=== PATIENT | male | born 1970 | race Caucasian/White ===

== ENCOUNTER 2018-08-22 13:09 | Emergency (ER) | payer BC, SELFPAY ==
[2018-08-22 13:10] VITALS: BP 136/80; PULSE 89; RESP 22; TEMP 36.3; BMI 40.2
--- NOTE | 2018-08-22 13:20 | CT_ITS ---
STUDY: CT ABDOMEN AND PELVIS WITHOUT CONTRAST REASON FOR EXAM: Male, 48 years old. Left flank pain. RADIATION DOSAGE (If Supplied By Facility): CTDIvol = ( 14.80 ) mGy, DLP = ( 774.15 ) mGycm TECHNIQUE: Transaxial images were obtained from the dome of the diaphragm to the symphysis pubis without oral contrast, and without intravenous contrast. Sagittal and coronal images were reconstructed. Individualized dose optimization techniques were used for this CT. COMPARISON: None. FINDINGS: The visualized lung bases are unremarkable. The visualized portions of the heart are within normal limits. There is decreased attenuation of the liver consistent with steatosis. Normal gallbladder and extrahepatic biliary system. Normal spleen. Normal pancreas. Normal bilateral adrenal glands. There is a 3.4 mm calculus in the upper pole of the right kidney. There is also evidence of a 1.2 cm cyst in the posterior aspect of the upper pole of the right kidney. There is a 4.3 mm nonobstructive calculus in the upper pole calyx of the left kidney. There is also evidence of a 3 mm calculus in the distal portion of the left ureter just proximal to the ureterovesical junction. There is a small hiatal hernia. Normal small intestine. Normal colon. The appendix is visualized and appears normal. Normal abdominal aorta. Normal inferior vena cava. Normal retroperitoneum. Normal urinary bladder. Small benign-appearing lymph nodes in both groins. Normal abdominal wall. Normal osseous structures. CT/Abdomen/Pelvis without Cont IMPRESSION: 3 mm calculus in the distal portion of the left ureter just proximal to the ureterovesical junction. Small nonobstructive bilateral intrarenal calculi. Small cyst in the right kidney. Electronically Signed: Lázaro Smiley MD at 14:13 EST , Service support ,
[2018-08-22] MEDS: Ketorolac 30 MG/ML Syringe IV (13:28)
[2018-08-22] MEDS: 0.9% Normal Saline 1,000 ML 250 ML IV (13:28)
[2018-08-22] MEDS: morphine 8 MG/ML Syringe IV (13:28)
[2018-08-22] MEDS: Ondansetron 4 MG/2 ML Vial IV (13:28)
[2018-08-22 13:37] LABS: Absolute Lymphocyte Count 2.34 X10^3/ul (0.83-4.51); Absolute Neutrophil Count 4.9 X10^3/uL (2.0-7.7); Basophil# 0.08 X10^3/uL; Eosinophil# 0.27 X10^3/uL; Eosinophils% 3.2 % (0-5); Hematocrit 45.7 % (40-54); Hemoglobin 15.3 g/dl (13.0-16.5); Lymphocyte # 2.34 X10^3/ul (4.0); Lymphocyte % 27.9 % (19-41); Mean Corp Hgb Conc 33.5 g/gl (32-36); Mean Corpuscular Volume 86.6 fL (80-94); Mean Platelet Vol. 9.8 fl (6.2-12.0); Monocyte# 0.78 X10^3/uL; Monocyte% 9.3 % (0-10); Neutrophil % 58.5 % (47-70); Platelet Count 256 K/mm3 (150-450); RBC Distribution Width CV 13.7 % (11.6-14.6); RBC Distribution Width SD 43.1 fl (35.1-43.9); Red Blood Count 5.28 M/mm3 (4.6-6.2); White Blood Count 8.4 K/mm3 (4.4-11.0)
[2018-08-22 13:40] LABS: POSITIVE COUNT NO; POSITIVE DIFFERENTIAL NO; POSITIVE MORPHOLOGY NO
[2018-08-22 13:51] LABS: Anion Gap 7 (5-15); BUN 11 mg/dL (7-18); BUN/Creat Ratio 7.9 RATIO (10-20); Calcium,Total 8.6 mg/dL (8.5-10.1); Chloride 103 mmol/L (98-107); Creatinine, Serum 1.39 mg/dL (0.70-1.30); EST Glomerular Filtration Rate 58 mL/min (>60); Est Glom Filt Rate - Afr Amer 70 mL/min (>60); Estimated Creatinine Clearance 61.42 ml/min; Glucose 118 mg/dL (74-106); Potassium 3.2 mmol/L (3.5-5.1); Sodium Level 135 mmol/L (136-145)
--- NOTE | 2018-08-22 14:04 | ED.VISSUMM ---
- ER Visit Summary Date of Service: 08/22/18 Chief Complaint: Left flank pain History of Present Illness: The patient is a 48 M presents to the emergency department left-sided flank pain. The patient was in his normal state of health. He states come from work, and had sudden onset, stabbing pain in his left flank that radiated into his left pelvis. He was nauseated without vomiting. He states his never had pain like this before. He denies any fevers or chills. He denies any history of prior kidney stone. She is otherwise healthy. He is on no daily medications. Physical Examination: Vital signs reviewed General: Well-nourished, well-developed Head: Normocephalic, atraumatic Eyes: Pupils equal and reactive, extraocular muscles intact Neck, supple, no lymphadenopathy Heart: Regular rate and rhythm Respiratory: No distress, clear bilaterally Abdomen: Soft, nontender, nondistended, no peritoneal signs Back: Nontender Extremities: Nontender, no edema, no cords Skin: Normal color no rash Neuro: Alert and oriented, no focal or lateralizing deficits Test Results: [] Emergency Department Course and Treatment: Clinically, the patient's symptoms do seem consistent with kidney stone. He denies any prior history of this. IV was established. He was given Toradol and morphine. He did have improvement of his pain but then it returned. He underwent CT of the abdomen pelvis. This does show a 3 mm distal stone near the UVJ. Patient's pain is returned. He was ordered more analgesics, but within moments, his pain had totally resolved. Patient does not want to stay to get a urine. He denies any fevers. I do feel at this time that he is safe for discharge as he has pain control. He will be given outpatient neurology follow-up. Treatment Plan: [] Disposition: Discharge Impression: 1. 3 mm kidney stone This note was generated with [employer] dictation software. It may contain incorrect words, spelling, and punctuation that were not noted in review of the chart prior to signing ED Disposition - Plan for ED Patient: Instructions: ED Stone Renal W Colic Prescriptions: Hydrocodone Bitart/Apap 5-325 [[place] 5MG-325MG] 1 tab PO Q4H PRN PRN 2 Days #10 tab PRN Reason: Pain Ondansetron [Zofran Odt] 4 mg PO Q8H PRN PRN #10 tab PRN Reason: Nausea Tamsulosin HCl [Flomax] 0.4 mg PO DAILY #7 cap Referrals: Juan Michaels MD [STAFF PHYSICIAN] -
[2018-08-22 15:24] VITALS: BP 138/67; PULSE 81; RESP 15; O2SAT 98
== END 2018-08-22 15:26 | disposition home or self-care (01) ==
LOC: ED 13:45
PROVIDERS: Emergency Provider Emergency Medicine
DX: N20.0 Calculus of kidney (principal)
CPT/HCPCS: 74176; 80048; 85025; 96361; 96374; 96375; 99283; J7030; A4216; J2405

== ENCOUNTER → 2018-08-26 11:00 | Outpatient (CLI) | payer BC, SELFPAY ==
[2018-08-22 13:10] VITALS: BMI 40.2
[2018-09-01 20:07] LABS: Ca Oxalate, Dihydrate 15 % (.); Ca Oxalate, Monohydrate 80 % (.)
== END ==
PROVIDERS: Visit Provider Nurse Practitioner Adult Health
DX: N20.0 Calculus of kidney (principal)
CPT/HCPCS: 82360

== ENCOUNTER → 2018-08-27 08:13 | Outpatient (CLI) | payer BC, SELFPAY ==
[2018-08-22 13:10] VITALS: BMI 40.2
== END ==
PROVIDERS: Referring Provider Nurse Practitioner Adult Health; Visit Provider Nurse Practitioner Adult Health
DX: N20.0 Calculus of kidney (principal)

== ENCOUNTER 2020-09-08 02:25 | Emergency (ER) | payer OTHER, SELFPAY ==
[2020-09-08 02:26] VITALS: BP 136/75; PULSE 85; RESP 18; TEMP 36.2; O2SAT 96; BMI 41.0
--- NOTE | 2020-09-08 02:29 | CT_ITS ---
STUDY: CT ABDOMEN AND PELVIS WITHOUT CONTRAST REASON FOR EXAM: Male, 50 years old. Kidney Stone RADIATION DOSAGE (If Supplied By Facility): CTDIvol = ( 23.10 ) mGy, DLP = ( 1315.80 ) mGycm TECHNIQUE: Transaxial images were obtained from the dome of the diaphragm to the symphysis pubis without oral contrast, and without intravenous contrast. Sagittal and coronal images were reconstructed. Individualized dose optimization techniques were used for this CT. COMPARISON: 08/22/2018. FINDINGS: The visualized lung bases are unremarkable. The visualized portions of the heart are within normal limits. There is decreased attenuation of the liver consistent with steatosis. The gallbladder is contracted. Normal spleen. Normal pancreas. Normal bilateral adrenal glands. 1.3 mm stone within the upper pole of the right kidney. There is mild right hydronephrosis with minimal hydroureter due to a proximal ureteral stone measuring 4 mm and seen approximately 5.5 cm below the UP junction. Otherwise normal right kidney. 2 mm stone in the upper pole of the left kidney. Remainder of the left kidney are unremarkable. Normal visualized stomach. Normal small intestine. Normal colon. The appendix is visualized and appears normal. Normal abdominal aorta. Normal inferior vena cava. Normal retroperitoneum. Normal urinary bladder. Normal size of prostate gland. Normal abdominal wall. There are mild degenerative changes of the visualized lumbar spine. CT/Abdomen/Pelvis without Cont IMPRESSION: Mild right hydronephrosis due to a proximal right ureteral stone measuring 4 mm as described above. Bilateral intrarenal stones as described. No acute appendicitis or bowel obstruction. Electronically Signed: Marilu Estrella MD at 3:06 EST , Service support ,
--- NOTE | 2020-09-08 02:30 | ED.DCSUM_ITS ---
- ER Visit Summary Date of Service: 09/08/20 Chief Complaint: Right flank/abdominal pain History of Present Illness: The patient is a 50 M who is right flank pain. Started an hour ago. It woke him up from sleep. He states he felt very hot so he opened up a window. He denies any hematuria. He does have a history of kidney stones. His last one was about a year ago. He has not had any fevers recently. He denies any nausea or vomiting. He denies any other health issues. Physical Examination: Vital signs reviewed. HEENT exam unremarkable. Heart is regular rate and rhythm without murmurs. Lungs are clear to auscultation. Abdomen is soft tenderness in the right lower quadrant. There is no guarding or rebound tenderness. Extremities reveal no edema. Skin exam normal. Neurologic exam normal. Test Results: Laboratory studies show a potassium of 2.8, glucose 142. Creatinine is 1.41 which is baseline. Urinalysis shows blood but only trace leukocytes. CAT scan reveals a 4 mm proximal ureteral stone with mild hydronephrosis. Emergency Department Course and Treatment: Patient was given normal saline, Zofran and Toradol. He continued to have pain to his given morphine. When I reevaluated him he was improved but was still having pressure. At this time the patient like to be discharged home. I will give him Flomax and dose of Dilaudid before discharge. I will send him home with Percocet for pain control. He will follow-up with urology. Treatment Plan: [] Disposition: Discharge Impression: Ureterolithiasis, renal colic This note was generated with [employer] dictation software. It may contain incorrect words, spelling, and punctuation that were not noted in review of the chart prior to signing ED Disposition - Plan for ED Patient: Disposition: Home or Assisted Living Instructions: ED Kidney Stone w/ Colic Prescriptions: Tamsulosin HCl [Flomax] 0.4 mg PO DAILY #7 cap Transmission Status: Pending to [id number] [place] Oxycodone HCl/Acetaminophen [Percocet 5/325] 1 tablet PO Q6H PRN PRN 3 Days #10 tablet PRN Reason: Pain Transmission Status: Sent to [address] [place] Referrals: Care Physician,No Primary [NON-STAFF] - Juan Michaels MD [STAFF PHYSICIAN] -
[2020-09-08] MEDS: Ketorolac 15 MG/ML Vial IV (02:36)
[2020-09-08] MEDS: Ondansetron 4 MG/2 ML Vial IV (02:36)
[2020-09-08 02:39] LABS: Absolute Lymphocyte Count 3.59 X10^3/uL (0.83-4.51); Absolute Neutrophil Count 3.8 X10^3/uL (2.0-7.7); Basophil# 0.09 X10^3/uL; Eosinophil# 0.36 X10^3/uL; Hemoglobin 15.9 g/dL (13.0-16.5); Lymphocyte # 3.59 X10^3/ul (4.0); Lymphocyte % 40.1 % (19-41); Mean Corp Hgb Conc 33.8 g/dL (32-36); Mean Corpuscular Hgb 29.2 pg (27.0-32.0); Mean Corpuscular Volume 86.2 fL (80-94); Mean Platelet Vol. 9.6 fl (6.2-12.0); Monocyte# 1.08 X10^3/uL; Monocyte% 12.1 % (0-10); NRBC Flagged by Analyzer 0 % (0-5); Neutrophil # 3.82 X10^3/uL (2.7-7.7); Neutrophil % 42.6 % (47-70); Platelet Count 261 K/mm3 (150-450); RBC Distribution Width CV 12.9 % (11.6-14.6); RBC Distribution Width SD 40.1 fl (35.1-43.9); Red Blood Count 5.45 M/mm3 (4.6-6.2)
[2020-09-08 02:50] LABS: BUN 15 mg/dL (7-18); Creatinine, Serum 1.41 mg/dL (0.70-1.30); Estimated Creatinine Clearance 61.31 ml/min; Glucose 142 mg/dL (74-106)
[2020-09-08 02:51] LABS: Anion Gap 7 (5-15); BUN/Creat Ratio 10.6 RATIO (10-20); Calcium,Total 8.8 mg/dL (8.5-10.1); Chloride 104 mmol/L (98-107); EST Glomerular Filtration Rate 57 mL/min (>60); Est Glom Filt Rate - Afr Amer 69 mL/min (>60); Potassium 2.8 mmol/L (3.5-5.1); Sodium Level 140 mmol/L (136-145)
[2020-09-08] MEDS: 0.9% Normal Saline 1,000 ML 250 ML IV (02:59)
[2020-09-08] MEDS: morphine 8 MG/ML Syringe IV (03:37)
[2020-09-08 05:19] LABS: Color, Urine Yellow (Yellow); Glucose, Dipstick 50 mg/dl (Normal); Ketone-Dipstick 5 mg/dl (Negative); Leukocyte Esterase-Dipstick 25 /ul (Negative); Nitrite-Dipstick Negative (Negative); Occult Blood-Urine 250 /ul (Negative); Protein-Dipstick 100 mg/dl (Negative); Specific Gravity, Urine 1.025 (1.002-1.030); Squamous Epithelial Cells - UA 0 SEEN /hpf (0-5); Urine Bilirubin Dipstick Negative (Negative); Urine Clarity Clear (Clear); Urine Urobilinogen 1 mg/dl (Normal)
[2020-09-08 05:28] LABS: Red Blood Cells-Urine > 100 SEEN /hpf (0-5); White Blood Cells 0-5 SEEN /hpf (0-5)
[2020-09-08 05:30] LABS: Amorphous Sediment 1+; Bacteria 1+ /hpf (None Seen); Mucous, Urine 2+ /hpf (<or=2+)
[2020-09-08 05:31] LABS: Fine Granular Cast- Urine 0-5 SEEN /lpf (0-5); Hyaline Cast 0-5 SEEN /lpf (0-5); Transitional Epithelial - Ur 0-5 SEEN /hpf (0-5)
[2020-09-08] MEDS: HYDROmorphone 0.5 MG/0.5 ML SYRINGE IV (05:44)
[2020-09-08] MEDS: Tamsulosin HCl 0.4 MG Capsule PO (06:07)
[2020-09-08 06:11] VITALS: BP 138/80; PULSE 60; RESP 16; TEMP 36.6; O2SAT 98
== END 2020-09-08 06:13 | disposition home or self-care (01) ==
PROVIDERS: Emergency Provider Emergency Medicine; PCP Family Medicine
DX: N13.2 Hydronephrosis with renal and ureteral calculous obstruction (principal); Z87.442 Personal history of urinary calculi
CPT/HCPCS: 74176; 80048; 81001; 85025; 90471; 96361; 96374; 96375; 99285; J7030; A4216; J2405

== ENCOUNTER 2020-09-10 18:24 | Emergency (ER) | payer OTHER, SELFPAY ==
[2020-09-10 18:25] VITALS: BP 146/97; PULSE 86; RESP 25; TEMP 36.4; O2SAT 95; BMI 39.5
--- NOTE | 2020-09-10 18:35 | ED.VIS.GEN ---
History of Present Illness Chief Complaint: Flank Pain Informant: Patient Onset: Days Context: Gradual Onset Timing: Waxes and wanes Current Severity: Severe Maximum Severity: Severe Narrative: Patient returns with severe right flank pain. He was seen in the ER on the and diagnosed with a 4 mm proximal ureter stone. Patient was sent home with Percocet and Flomax. Patient states his last dose of medications was 2 hours ago. He is having severe pain and having difficulty finding a position of comfort. He is scheduled to see Dr. Michaels in the office on Saturday. - Past Medical History (1) Kidney stones Status: Chronic Past Medical History - Allergies and Home Meds Allergies/Adverse Reactions: Allergies No Known Allergies Allergy (Verified 09/10/20 18:27) Primary Care Physician: Agustin Woods MD [Primary Care Provider] - Prior records reviewed: Yes Smoking Status: Never smoker Review of Systems General: Denies: Chills, Fever Eyes: Denies: Visual changes - bilaterally ENT: Denies: Bilateral ear pain Cardiovascular: Denies: Chest pain Respiratory: Denies: Dyspnea, Cough Gastrointestinal: Reports: Abdominal pain, Nausea Musculoskeletal: Reports: Back pain - Right flank Skin: Denies: Rash Neurological: Denies: Headache Hematologic: Denies: Easy bruising, Easy bleeding Allergy: Denies: Uticaria Physical Exam Vital Signs/Narrative: Vital Signs Temp Pulse Resp BP Pulse Ox 09/10/20 18:25 97.6 F L 86 25 H 146/97 H 95 Inital Vital Signs reviewed: Yes General: Well nourished, Well developed, - - Rolling in the bed, difficulty finding position of comfort. Head: Normocephalic Neck: Supple Cardiovascular: Regular rate, Regular rhythm Respiratory: No distress, CTA bilaterally Abdomen: Soft, Nontender Back: CVA tenderness Extremities: Nontender Skin: Normal color Neurological: Alert, Oriented x3 Diagnostic/Tx/Re-eval Impressions KUB X-Ray 09/10/20 19:50 IMPRESSION: Normal abdomen x-ray. No intestinal obstruction. Electronically Signed: Nadya Fry MD at 20:53 EST Tel , Service support , 09/10/20 19:50 KUB [Abdomen Single View] [RAD] Stat Laboratory Results 09/10/20 09/10/20 09/10/20 18:30 18:30 19:15 WBC 8.9 RBC 5.60 Hgb 16.2 Hct 47.1 MCV 84.1 MCH 28.9 MCHC 34.4 RDW Std Deviation 38.5 RDW Coeff of [place] 12.8 Plt Count 260 MPV 10.0 Immature Gran % (Auto) 0.300 Neut % (Auto) 72.8 H Lymph % (Auto) 16.6 L [place] % (Auto) 7.9 Eos % (Auto) 1.7 Baso % (Auto) 0.7 Absolute Neuts (auto) 6.5 Absolute Lymphs (auto) 1.48 Nucleated RBC % 0 Sodium 136 Potassium 3.3 L Chloride 102 Carbon Dioxide 26.0 Anion Gap 8 BUN 13 Creatinine 1.54 H Estim Creat Clear Calc 56.14 Est GFR (MDRD) Af Amer 62 Est GFR (MDRD) Non-Af 51 L BUN/Creatinine Ratio 8.4 L Glucose 125 H Calcium 9.2 Urine Color Yellow Urine Clarity Sl. Cloudy Urine pH 5.0 Ur Specific [place] 1.025 Urine Protein 100 H Urine Glucose (UA) Normal Urine Ketones 15 H Urine Occult Blood 250 H Urine Nitrite Negative Urine Bilirubin Negative Urine Urobilinogen 1 H Ur Leukocyte Esterase 25 H Urine RBC 25-50 SEEN Urine WBC 0-5 SEEN Ur Squamous Epith Cells 0 SEEN Urine Bacteria 0 SEEN Urine Mucus 1+ - Medical Decision Making Patient was given Toradol, Zofran, 0.5 mg Dilaudid, and IV fluids. On repeat evaluation pain was significantly improved. Test results discussed with the patient. KUB was obtained. Per my interpretation nonspecific bowel gas pattern I cannot definitively see a kidney stone. Radiologist interpretation is also reviewed. At this time patient's pain is significantly improved. He wishes to go home with pain medication. He states he will has 1 Percocet left will be given a prescription. We will also write him 2 additional days of Toradol as he was not placed on an anti-inflammatory previously. He will follow-up with his urologist on Saturday as planned. ED Disposition - Plan for ED Patient: Disposition: Home or Assisted Living Diagnosis: Ureterolithiasis Instructions: ED Kidney Stone w/ Colic Prescriptions: Oxycodone HCl/Acetaminophen [Percocet 5/325] 1 tablet PO Q6H PRN PRN 3 Days #12 tablet PRN Reason: Pain Ketorolac [Toradol] 10 mg PO Q6H #6 tablet Additional Instructions: Follow-up with your urologist on Saturday as scheduled.
[2020-09-10] MEDS: HYDROmorphone 0.5 MG/0.5 ML SYRINGE IV (18:48)
[2020-09-10] MEDS: Ondansetron 4 MG/2 ML Vial IV (18:50)
[2020-09-10] MEDS: Ketorolac 30 MG/ML Syringe IV (18:50)
[2020-09-10 19:23] LABS: Bacteria 0 SEEN /hpf (None Seen); Squamous Epithelial Cells - UA 0 SEEN /hpf (0-5)
[2020-09-10 19:27] LABS: Color, Urine Yellow (Yellow); Glucose, Dipstick Normal (Normal); Ketone-Dipstick 15 mg/dl (Negative); Leukocyte Esterase-Dipstick 25 /ul (Negative); Nitrite-Dipstick Negative (Negative); Occult Blood-Urine 250 /ul (Negative); Protein-Dipstick 100 mg/dl (Negative); Specific Gravity, Urine 1.025 (1.002-1.030); Urine Bilirubin Dipstick Negative (Negative); Urine Clarity Sl. Cloudy (Clear); Urine Urobilinogen 1 mg/dl (Normal)
[2020-09-10 19:31] LABS: Absolute Lymphocyte Count 1.48 X10^3/uL (0.83-4.51); Absolute Neutrophil Count 6.5 X10^3/uL (2.0-7.7); Basophil# 0.06 X10^3/uL; Basophil% 0.7 % (0-1); Eosinophil# 0.15 X10^3/uL; Eosinophils% 1.7 % (0-5); Hematocrit 47.1 % (40-54); Hemoglobin 16.2 g/dL (13.0-16.5); Lymphocyte # 1.48 X10^3/ul (4.0); Lymphocyte % 16.6 % (19-41); Mean Corp Hgb Conc 34.4 g/dL (32-36); Mean Corpuscular Hgb 28.9 pg (27.0-32.0); Mean Corpuscular Volume 84.1 fL (80-94); Monocyte# 0.71 X10^3/uL; Monocyte% 7.9 % (0-10); NRBC Flagged by Analyzer 0 % (0-5); Neutrophil # 6.51 X10^3/uL (2.7-7.7); Neutrophil % 72.8 % (47-70); Platelet Count 260 K/mm3 (150-450); RBC Distribution Width CV 12.8 % (11.6-14.6); RBC Distribution Width SD 38.5 fl (35.1-43.9); White Blood Count 8.9 K/mm3 (4.4-11.0)
[2020-09-10 19:36] LABS: Anion Gap 8 (5-15); BUN 13 mg/dL (7-18); BUN/Creat Ratio 8.4 RATIO (10-20); Calcium,Total 9.2 mg/dL (8.5-10.1); Chloride 102 mmol/L (98-107); Creatinine, Serum 1.54 mg/dL (0.70-1.30); EST Glomerular Filtration Rate 51 mL/min (>60); Est Glom Filt Rate - Afr Amer 62 mL/min (>60); Estimated Creatinine Clearance 56.14 ml/min; Glucose 125 mg/dL (74-106); Potassium 3.3 mmol/L (3.5-5.1); Sodium Level 136 mmol/L (136-145)
[2020-09-10 19:44] LABS: Mucous, Urine 1+ /hpf (<or=2+)
[2020-09-10 19:46] LABS: Red Blood Cells-Urine 25-50 SEEN /hpf (0-5)
[2020-09-10 19:47] LABS: White Blood Cells 0-5 SEEN /hpf (0-5)
--- NOTE | 2020-09-10 19:50 | RAD_ITS ---
STUDY: X-RAY - ABDOMEN/PELVIS REASON FOR EXAM: Male, 50 years old. kidney stone TECHNIQUE: Multiple views of the abdomen COMPARISON: 08 September 2020 FINDINGS: There is no intestinal obstruction. There are no calcifications projecting over the abdomen. Recently CT diagnosed stones are too small to visualize with plain films. Osseous structures are intact. RAD/Abdomen Single View IMPRESSION: Normal abdomen x-ray. No intestinal obstruction. Electronically Signed: Nadya Fry MD at 20:53 EST Tel , Service support ,
[2020-09-10 21:20] VITALS: BP 121/78; PULSE 69; RESP 16; O2SAT 95
== END 2020-09-10 21:44 | disposition home or self-care (01) ==
PROVIDERS: Emergency Provider Emergency Medicine; PCP Family Medicine
DX: N20.1 Calculus of ureter (principal); Z87.442 Personal history of urinary calculi
CPT/HCPCS: 74018; 80048; 81001; 85025; 96374; 96375; 99283; A4216; J2405

== ENCOUNTER 2024-04-13 00:54 | Emergency (ER) | payer BC, SELFPAY ==
[2024-04-13 00:55] VITALS: BP 160/115; PULSE 96; RESP 18; TEMP 36.7; O2SAT 97; BMI 41.5
--- NOTE | 2024-04-13 01:12 | CT_ITS ---
EXAM: CT ABDOMEN AND PELVIS WITHOUT INTRAVENOUS CONTRAST CLINICAL INDICATION: Pain Pain TECHNIQUE: Helically acquired images were obtained of the abdomen and pelvis without intravenous contrast. This CT exam was performed using one or more of the following dose reduction techniques: automated exposure control, adjustment of the mA and/or kV according to patient size, and/or use of iterative reconstruction technique. RADIATION DOSE: CTDIvol = 21.92 mGy, DLP = 1193.75 mGy-cm COMPARISON: CT scan abdomen and pelvis 09/08/2020. FINDINGS: LOWER THORAX: There are coronary artery calcifications. Lung bases are clear. No cardiomegaly. No significant pericardial effusion. ABDOMEN: LIVER: There is decreased attenuation in the liver consistent with fatty infiltration. GALLBLADDER AND BILE DUCTS: Unremarkable. No calcified gallstones. No gallbladder distention or wall edema. No intra- or extrahepatic biliary ductal dilation. PANCREAS: Unremarkable. No focal cystic mass. SPLEEN: The spleen is mildly enlarged. ADRENALS: Unremarkable. No nodules. KIDNEYS AND URETERS: As seen on axial images 163-165, there is a 3.5 mm wide distal right ureteral IN the ureterovesical junction. There is mild hydronephrosis of the right kidney. There are 2 nonobstructive right renal calculi, the larger of which measures 3 mm. There is a 5 mm nonobstructive left renal calculus. There are simple appearing right renal cyst. No follow-up imaging is necessary for simple renal cysts or cysts that are too small to characterize. Normal renal size and position. STOMACH AND BOWEL: Unremarkable. No stomach or bowel distention. No focal inflammatory change. PELVIS: APPENDIX: No evidence of acute appendicitis. The appendix is seen on axial images 135-137. BLADDER: Unremarkable. REPRODUCTIVE: Unremarkable as visualized. No mass. ABDOMEN and PELVIS: INTRAPERITONEAL SPACE: Unremarkable. No ascites or other fluid collection. No free air. BONES/JOINTS: There are multilevel degenerative changes in the visualized spine. No suspicious lytic or blastic abnormality. SOFT TISSUES: Unremarkable. No discrete abdominal or pelvic wall hernia. VASCULATURE: No evidence for abdominal aortic aneurysm. LYMPH NODES: Unremarkable. No enlarged lymph nodes. CT/Abdomen/Pelvis without Cont IMPRESSION: 1. 3.5 mm wide distal right ureteral calculus with associated mild right hydronephrosis. 2. Small nonobstructive renal calculi bilaterally. 3. Mild splenomegaly. 4. Fatty infiltration of the liver. 5. Small coronary artery calcifications. Electronically Signed: Sancho Zimmerman MD at 2:50 EDT Reading Location ID and State: [facility] / [place] , Service support ,
--- NOTE | 2024-04-13 01:13 | EDS_ITS ---
HPI HPI - GI History of Present Illness Chief Complaint: Flank Pain Informant: patient and spouse/S.O. Abdominal Pain/Flank Pain Onset: Today and Hours Context: Sudden Onset Timing: Continuous Quality: Sharp and Stabbing Location: Right Flank Current Severity: Severe Maximum Severity: Severe Worsened by: Nothing Relieved by: Nothing Nausea/Vomiting/Emesis GI Symptom: Negative for Nausea or Vomiting Diarrhea/Melena/Hematochezia GI Symptom: Negative for Diarrhea, Melena or Hematochezia Associated Symptoms Associated Symptoms: Negative for Dysuria, Frequency, Hematuria or Urgency Narrative Narrative: 54-year-old male history of prior kidney stones. Said he was doing fine he felt fine earlier today. Around 11 PM he had sudden onset of right flank pain radiating to his right groin. Denies nausea or vomiting. No fever. No dysuria or hematuria. States this feels like his prior kidney stones. Prior similar symptoms: Yes Recent Illness/Hospitalization: No PFSH PFSH Medical History Kidney stones Home Medications ?Medication ?Instructions ?Recorded ?Last Taken ?Type oxycodone-acetaminophen 5 mg-325 1 tab PO Q4H 3 days #10 tabs 04/13/24 Unknown Rx mg tablet (Percocet) tamsulosin 0.4 mg capsule (Flomax) 0.4 mg PO DAILY 3 days #3 caps 04/13/24 Unknown Rx Allergy/AdvReac Type Severity Reaction Status Date / Time No Known Allergies Allergy Verified 04/13/24 00:57 Surgical History no surgical history Social History Smoking Status: Never smoker ROS ROS ED ROS Narrative Right flank pain. No recent illness. Constitutional Constitutional ED: Denies chills or fever(s) ENT ENT ED: Denies ear pain Cardiovascular Cardiovascular: Denies chest pain Respiratory/Chest Respiratory/Chest: Denies cough Gastrointestinal Gastrointestinal: Denies abdominal pain Genitourinary Genitourinary ED: Denies dysuria Musculoskeletal Musculoskeletal: Denies arthralgias Integumentary Denies abscess Neurologic Neurologic: Denies headache(s) Psychiatric Psychiatric: Denies anxiety Endocrine Endocrinology: Denies polydipsia Hematologic/Lymphatic Hematologic/Lymphatic: Denies easy bleeding Allergic/Immunologic Allergic/Immunologic ED: Denies mouth swelling, tongue swelling or urticaria EXAM Physical Exam Narrative Exam Narrative: Middle-age male vital signs stable blood pressure elevated 1 6115 I suspect secondary to pain. He is rolling on the bed in pain. at bedside. H EENT exam unremarkable. Lungs clear to auscultation bilateral. Heart regular rate and rhythm rate about 95 no murmur. Chest wall ribs nontender. Abdomen soft nontender. No reproducible abdominal pain. No right upper or right lower quadrant pain. No distention. Back nontender. He has right flank pain but there is no reproducible pain or signs of trauma. Moving all 4 extremities. Normal range of motion. Normal coordinator mining products strength. Normal dorsi plantarflexion. No edema. Neurologically he is awake and alert no focal motor deficits. Const Vital Signs: 04/13/24 00:55 Temperature 98.1 F Temperature Source Oral Pulse Rate 96 Respiratory Rate 18 Blood Pressure 160/115 H Blood Pressure Mean 130 Pulse Ox 97 Oxygen Delivery Method Room Air Positive well nourished and well developed; Negative for cachectic, contractures or unkempt General Appearance ED: well developed; Negative for unkempt, cachectic, contractures, NAD or pallor Nutritional Appearance: Negative for cachectic HEENT Reports moist mucous membranes normocephalic and atraumatic Eyes PERRL and EOMs intact bilaterally Neck no lymphadenopathy, supple and no JVD Resp normal respiratory effort and clear to auscultation bilaterally Cardio regular rate, regular rhythm, S1 normal heart sound, S2 normal heart sound and no murmurs GI non-tender, non-distended and no masses Palpation: soft; Negative for tender, guarding, hernia, mass, pulsatile mass or rebound tenderness present Back/Spine no CVA tenderness Back/Spine Narrative: Planing of right flank pain. Not reproducible. Extremity full ROM General Extremety ED: Negative for edema or tenderness General Extremity: Negative for edema Neuro CN's II-XII intact bilaterally and moves all extremities Sensorium / Orientation: alert, oriented to person, oriented to place and oriented to time Motor Exam: strength 5/5 throughout Psych mental status grossly normal and thought process normal Appearance: Negative for unkempt Attitude: No agitated Mood & Affect: Negative for depressed, anxious or tearful Skin no wounds General Skin Exam: Negative for jaundice or pallor Lesions: no lesions Rashes: no rashes MDM MDM MDM Narrative Medical decision making narrative: 54-year-old male with sudden onset of right flank pain with a history of kidney stones. I suspect this is a kidney stone. CAT scan labs. Treated with IV morphine, Zofran to prevent nausea and Toradol. Repeat exam at 1:42 AM. Patient's pain is much improved after the morphine and Toradol. He is being taken to CAT scan at this time. Repeat exam at 2:53 AM patient doing well. Clinically looks good. So he does not need any more for pain. We discussed his test results with his CAT scan with 3.5 mm UVJ stone. He will follow-up as needed. Percocet for pain. Flomax. History & Record Review Discussion w/independent historian: Patient and Family Additional record(s) reviewed:: Prior inpatient record, Prior outpatient record, Prior ED visit and Prior labs Lab Data Attestation: I reviewed the patient's lab results. Lab results narrative: CBC shows white count of 7. H&H 15 and 46. Platelets 258. BMP shows potassium 3.4. Gap of 8. BUN and creatinine of 14 and 1.67. Glucose 195. Urinalysis shows 250 occult blood. No nitrates. No white cells nor bacteria. CT flank study shows a right 3.5 mm UVJ stone with mild right hydro and hydroureter. Labs: Laboratory Results - last 24 hr 04/13/24 04/13/24 01:06 02:06 WBC 7.7 RBC 5.58 Hgb 15.7 Hct 46.9 MCV 84.1 MCH 28.1 MCHC 33.5 RDW Std Deviation 40.3 RDW Coeff of [place] 13.2 Plt Count 258 MPV 9.8 Immature Gran % (Auto) 0.300 Neut % (Auto) 57.9 Lymph % (Auto) 28.1 [place] % (Auto) 9.1 Eos % (Auto) 3.6 Baso % (Auto) 1.0 Absolute Neuts (auto) 4.5 Absolute Lymphs (auto) 2.16 Nucleated RBC % 0 Sodium 138 Potassium 3.4 L Chloride 106 Carbon Dioxide 25.0 Anion Gap 8 BUN 14 Creatinine 1.67 H Estim Creat Clear Calc 63.51 Est GFR (MDRD) Af Amer 56 L Est GFR (MDRD) Non-Af 46 L BUN/Creatinine Ratio 8.4 L Glucose 195 H Calcium 8.8 Urine Color Yellow Urine Clarity Clear Urine pH 7.0 Ur Specific [place] 1.010 Urine Protein 30 H Urine Glucose (UA) 100 H Urine Ketones 5 H Urine Occult Blood 250 H Urine Nitrite Negative Urine Bilirubin Negative Urine Urobilinogen 1 H Ur Leukocyte Esterase Negative Urine RBC 5-10 SEEN Urine WBC 0 SEEN Ur Squamous Epith Cells 0 SEEN Urine Bacteria 0 SEEN Urine Mucus 0 SEEN Radiography Diagnostic Testing: Clinical Impression(s) from Imaging Studies Abdomen/Pelvis CT 04/13/24 01:12 IMPRESSION: 1. 3.5 mm wide distal right ureteral calculus with associated mild right hydronephrosis. 2. Small nonobstructive renal calculi bilaterally. 3. Mild splenomegaly. 4. Fatty infiltration of the liver. 5. Small coronary artery calcifications. Electronically Signed: Sancho Zimmerman MD at 2:50 EDT Reading Location ID and State: [facility] / [place] , Service support , Discharge Plan Triage Chief Complaint: Flank Pain ED Provider: Krish Mohamud Dx/Rx/DC Orders Clinical Impression: Acute right flank pain, Right kidney stone, History of diabetes mellitus Instructions: ED Kidney Stone with Pain Prescriptions: New tamsulosin [Flomax] 0.4 mg capsule 0.4 mg PO DAILY 3 Days Qty: 3 0RF oxycodone-acetaminophen [Percocet] 5-325 mg tablet 1 tab PO Q4H 3 Days Qty: 10 0RF Primary Care Provider: Agustin Woods Referrals: Agustin Woods MD [Primary Care Provider] - Juan Michaels MD [Med Staff - Active Staff] - As Needed Activity Restrictions/Additional Instructions: Plenty of fluids and rest. Percocet for pain along with Motrin. Follow-up with the urologist as needed. Return if intractable pain, fever or intractable vomiting or feeling worse. Eat plenty of fruits, vegetables and fiber to prevent constipation due to the pain medication. You may need a stool softener. Print Language: Croatian Disposition Disposition: Home, Self Care
[2024-04-13 01:20] LABS: Absolute Lymphocyte Count 2.16 X10^3/uL (0.83-4.51); Absolute Neutrophil Count 4.5 X10^3/uL (2.0-7.7); Basophil# 0.08 X10^3/uL; Eosinophil# 0.28 X10^3/uL; Eosinophils% 3.6 % (0-5); Hematocrit 46.9 % (40-54); Hemoglobin 15.7 g/dL (13.0-16.5); Lymphocyte # 2.16 X10^3/ul (0.83-4.51); Lymphocyte % 28.1 % (19-41); Mean Corp Hgb Conc 33.5 g/dL (32-36); Mean Corpuscular Hgb 28.1 pg (27.0-32.0); Mean Corpuscular Volume 84.1 fL (80-94); Mean Platelet Vol. 9.8 fl (6.2-12.0); Monocyte% 9.1 % (0-10); NRBC Flagged by Analyzer 0 % (0-5); Neutrophil # 4.46 X10^3/uL (2.7-7.7); Neutrophil % 57.9 % (47-70); Platelet Count 258 K/mm3 (150-450); RBC Distribution Width CV 13.2 % (11.6-14.6); RBC Distribution Width SD 40.3 fl (35.1-43.9); Red Blood Count 5.58 M/mm3 (4.6-6.2); White Blood Count 7.7 K/mm3 (4.4-11.0)
[2024-04-13] MEDS: Ondansetron 4 MG/2 ML Vial IV (01:29)
[2024-04-13] MEDS: morphine 8 MG/ML Syringe IV (01:30)
[2024-04-13] MEDS: Ketorolac 30 MG/ML Syringe IV (01:30)
[2024-04-13 01:41] LABS: Anion Gap 8 (5-15); BUN 14 mg/dL (7-18); BUN/Creat Ratio 8.4 RATIO (10-20); Calcium,Total 8.8 mg/dL (8.5-10.1); Chloride 106 mmol/L (98-107); Creatinine, Serum 1.67 mg/dL (0.70-1.30); EST Glomerular Filtration Rate 46 mL/min (>60); Est Glom Filt Rate - Afr Amer 56 mL/min (>60); Estimated Creatinine Clearance 63.51 ml/min; Glucose 195 mg/dL (74-106); Potassium 3.4 mmol/L (3.5-5.1); Sodium Level 138 mmol/L (136-145)
[2024-04-13 02:12] LABS: Bacteria 0 SEEN /hpf (None Seen); Mucous, Urine 0 SEEN /hpf (<or=2+); Squamous Epithelial Cells - UA 0 SEEN /hpf (0-5); White Blood Cells 0 SEEN /hpf (0-5)
[2024-04-13 02:26] LABS: Color, Urine Yellow (Yellow); Glucose, Dipstick 100 mg/dl (Normal); Ketone-Dipstick 5 mg/dl (Negative); Leukocyte Esterase-Dipstick Negative /ul (Negative); Nitrite-Dipstick Negative (Negative); Occult Blood-Urine 250 /ul (Negative); Protein-Dipstick 30 mg/dl (Negative); Urine Bilirubin Dipstick Negative (Negative); Urine Clarity Clear (Clear); Urine Urobilinogen 1 mg/dl (Normal)
[2024-04-13 02:48] LABS: Red Blood Cells-Urine 5-10 SEEN /hpf (0-5)
[2024-04-13 02:54] VITALS: BP 134/91; PULSE 70; RESP 18; TEMP 36.4; O2SAT 94
== END 2024-04-13 03:28 | disposition home or self-care (01) ==
PROVIDERS: Emergency Provider Emergency Medicine; PCP Family Medicine; Visit Provider Emergency Medicine
DX: R10.9 Unspecified abdominal pain (principal); E11.9 Type 2 diabetes mellitus without complications; N13.2 Hydronephrosis with renal and ureteral calculous obstruction; Z87.442 Personal history of urinary calculi
CPT/HCPCS: 74176; 80048; 81001; 85025; 96374; 96375; 99283; A4216; J2405